=== PATIENT | male | born 1975 | race Caucasian/White ===

== ENCOUNTER 2016-06-04 00:51 | Emergency (ER) | payer OTHER ==
[~2016-06-04] VITALS: Ht 185.4 cm; Wt 137.2 kg
[2016-06-04 00:59] VITALS: TEMP 36.8; Ht 185.4 cm; Wt 137.2 kg
[2016-06-04] MEDS ORDERED: SODIUM CHLORIDE 0.9% 1000ML 1,000 ML IV STA (01:12)
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
[2016-06-04] MEDS ORDERED: OPTIRAY 320 IV PRN (01:30)
[2016-06-04 01:52] LABS: BASO % 0.3 %; BASO ABS # 0.03 K/uL (0-0.2); COMPLETE YES; EOS % 0.9 %; HEMATOCRIT 43.5 % (42-52); IG% 0.2 %; LYMPH % 20.6 %; LYMPH ABS # 1.84 K/uL (1.2-3.4); MEAN CELL VOLUME 89.1 fL (80-100); MEAN CORPUSCULAR HEMOGLOBIN 31.4 pg (25-34); MEAN CORPUSCULAR HGB CONC 35.2 g/dl (32-36); MEAN PLATELET VOLUME 10.1 fL (7.4-10.4); MONO % 9.5 %; NEUT % 68.5 %; PLATELET COUNT 212 K/uL (130-400); RED BLOOD COUNT 4.88 M/uL (4.7-6.1); WHITE BLOOD COUNT 8.93 K/uL (4.8-10.8)
[2016-06-04] MEDS ORDERED: LISI20TA3 PO (01:58)
[2016-06-04] MEDS ORDERED: GLIP-197 PO (01:58)
[2016-06-04] MEDS ORDERED: GLC/500 PO (01:58)
[2016-06-04] MEDS ORDERED: METO25TA56 PO (01:58)
[2016-06-04 02:09] LABS: ISTAT CREATININE 0.9 mg/dl (0.6-1.3); ISTAT IONIZED CALCIUM 1.13 mmol/l (1.12-1.32)
[2016-06-04 02:11] LABS: ALT/SGPT 26 U/L (12-78); AST/SGOT 19 U/L (15-37); BLOOD UREA NITROGEN 14 mg/dl (7-18); BUN/CREATININE RATIO 15.7 (10-20); CALCIUM 8.3 mg/dl (8.5-10.1); CARBON DIOXIDE 26 mmol/L (21-32); CHLORIDE 105 mmol/L (98-107); CREATININE 0.92 mg/dl (0.60-1.40); GLUCOSE 96 mg/dl (70-99); POTASSIUM 3.5 mmol/L (3.5-5.1); SODIUM 139 mmol/L (136-145)
[2016-06-04 02:14] LABS: ALKALINE PHOSPHATASE 68 U/L (45-117)
[2016-06-04 02:37] LABS: URINE APPEARANCE CLEAR (CLEAR); URINE BILIRUBIN NEG (NEG); URINE COLOR YELLOW; URINE NITRITE NEG (NEG); URINE SPECIFIC GRAVITY 1.016 (1.000-1.030); UROBILINOGEN NEG (NEG); ZZUR CULT IF INDIC CLEAN CATCH NO
[2016-06-04 02:42] LABS: MANUAL MICROSCOPIC REQUIRED? NO; REVIEW REQ? NO
[2016-06-04] MEDS ORDERED: CYCL10TA6 PO (04:14)
[2016-06-04 04:29] VITALS: BP 130/76; PULSE 69; O2SAT 97
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
== END 2016-06-04 04:40 | disposition home or self-care (01) ==
LOC: EDBD 00:51 → C.EDC 00:53 → C.EDA 04:40
DX: S46.911A Strain of unspecified muscle, fascia and tendon at shoulder and upper arm level, right arm, initial encounter (principal); V43.52XA Car driver injured in collision with other type car in traffic accident, initial encounter; V89.2XXA Person injured in unspecified motor-vehicle accident, traffic, initial encounter; Y92.411 Interstate highway as the place of occurrence of the external cause; E11.9 Type 2 diabetes mellitus without complications; I10 Essential (primary) hypertension; F17.200 Nicotine dependence, unspecified, uncomplicated; Z79.84 Long term (current) use of oral hypoglycemic drugs; Z79.899 Other long term (current) drug therapy; Z88.0 Allergy status to penicillin; Z83.3 Family history of diabetes mellitus; Z82.49 Family history of ischemic heart disease and other diseases of the circulatory system